=== PATIENT | male | born 1975 | race Caucasian/White ===

== ENCOUNTER 2020-08-20 16:38 | Inpatient (IN) | payer SELFPAY ==
[~2020-08-20] VITALS: Ht 180.3 cm; Wt 111.6 kg
[2020-08-20 16:41] VITALS: Ht 180.3 cm; Wt 111.6 kg
[2020-08-20 17:23] LABS: BASOPHIL % 0.5 % (0-2); PLATELET COUNT 299 x10^3mcL (130-400)
[2020-08-20 17:27] LABS: CALCIUM 9.4 mg/dL (8.5-10.1); CARBON DIOXIDE 31.2 mmol/L (21-32); CHLORIDE SERUM 101 mmol/L (98-107); CREATININE SERUM 0.8 mg/dL (0.7-1.3); GFR1 > 60 mL/min; GLUCOSE SERUM 191 mg/dL (74-106); POTASSIUM SERUM 3.6 mmol/L (3.5-5.1); SODIUM SERUM 138 mmol/L (136-145)
[2020-08-20 17:32] LABS: ALBUMIN 3.2 g/dL (3.4-5.0); ALKALINE PHOSPHATASE 68 U/L (46-116); ALT/SGPT 39 U/L (16-63); AST/SGOT 20 U/L (15-37); BILIRUBIN TOTAL 0.3 mg/dL (0.20-1.00); TOTAL PROTEIN, SERUM 6.8 g/dL (6.4-8.2)
[2020-08-20 19:29] LABS: microscopic required? NO
[2020-08-20 19:54] LABS: urine erythrocyte NEGATIVE (NEGATIVE)
[2020-08-20 20:04] LABS: AMPHETAMINE QUAL UR POSITIVE (See below)
[2020-08-22 18:57] LABS: FREE T4 0.99 ng/dL (0.76-1.46); FREE THYROXINE INDEX 2.6 ug/dL (1.4-4.5); T4(THYROXINE) 8.3 ug/dL (4.7-13.3)
[2020-08-22 18:59] LABS: T3 TOTAL 1.05 ng/mL
[2020-08-22 19:00] LABS: MAGNESIUM 1.8 mg/dL (1.8-2.4); PHOSPHOROUS 4.4 mg/dL (2.5-4.9)
[2020-08-22 20:35] VITALS: BP 150/94
[2020-08-23 06:20] VITALS: BP 145/97
[2020-08-23 08:50] LABS: microscopic required? NO
[2020-08-23 09:13] LABS: UA SPECIFIC GRAVITY 1.025 (1.005-1.035); urine erythrocyte NEGATIVE (NEGATIVE)
[2020-08-23 14:07] LABS: BASOPHIL % 0.3 % (0-2); PLATELET COUNT 317 x10^3mcL (130-400); RED CELL DISTRIBUTION WIDTH 13.4 % (11.5-14.5)
[2020-08-23 14:17] LABS: CALCIUM 8.9 mg/dL (8.5-10.1); CARBON DIOXIDE 27.8 mmol/L (21-32); CHLORIDE SERUM 97 mmol/L (98-107); CREATININE SERUM 0.9 mg/dL (0.7-1.3); GFR1 > 60 mL/min; GLUCOSE SERUM 266 mg/dL (74-106); POTASSIUM SERUM 3.9 mmol/L (3.5-5.1); SODIUM SERUM 132 mmol/L (136-145)
[2020-08-23 15:01] LABS: CHOLESTEROL/HDL RATIO 4.9
[2020-08-23 20:00] VITALS: BP 128/80
[2020-08-23 21:38] VITALS: BP 128/80
[2020-08-23] MEDS ORDERED: GLU500 PO (21:53)
== END 2020-08-23 22:11 | DRG 881 ==
LOC: ED 16:38 → MU 08-22 17:02
PROVIDERS: Specialist; ADMIT Internal Medicine; ATTEND Internal Medicine
DX: F32.9 Major depressive disorder, single episode, unspecified (principal); R45.851 Suicidal ideations; E44.0 Moderate protein-calorie malnutrition; F12.90 Cannabis use, unspecified, uncomplicated; F11.94 Opioid use, unspecified with opioid-induced mood disorder; E11.9 Type 2 diabetes mellitus without complications; F15.90 Other stimulant use, unspecified, uncomplicated; Z20.828 Contact with and (suspected) exposure to other viral communicable diseases; E66.9 Obesity, unspecified; Z79.899 Other long term (current) drug therapy; Z87.891 Personal history of nicotine dependence; Z56.0 Unemployment, unspecified; Z68.34 Body mass index [BMI] 34.0-34.9, adult
CPT/HCPCS: 82962; 84439; G0378; G0480; J7030; Q9967; U0003-CS